=== PATIENT | female | born 1975 | race Two or more races ===

== ENCOUNTER 2019-05-18 12:56 | Emergency (ER) | payer SELFPAY ==
--- NOTE | 2019-05-18 13:15 | Emergency Department Record ---
History of Present Illness - General Chief complaint: ENT Stated complaint: SORE THROAT Time Seen by Provider: 05/18/19 13:06 Source: Patient, Family Mode of Arrival: Ambulatory Limitations: No limitations - History of Present Illness Initial comments: The patient is here due to a 3 day hx of dry cough, ST and now R ear pain. The patient has had a mild NATHAN also but denies any sputum production, SOB, voice changes or fever. She did not get a flu shot this year. MD complaint: Sore throat Onset/Timin -: Days(s) Location: R ear Improves with: None Worsens with: None Associated Symptoms: Cough, Pain with swallowing, Sore throat - Related Data Previous Rx's Medication Instructions Recorded Cetirizine HCl/Pseudoephedrine 1 each PO BID #14 tab.er.12h 05/18/19 [Zyrtec-D Tablet] Fluticasone Propionate [Flonase] 2 spray EACH NARES DAILY #1 bottle 05/18/19 Prednisone [Prednisone 20Mg] 40 mg PO DAILY #8 tab 05/18/19 Allergies Allergy/AdvReac Type Severity Reaction Status Date / Time No Known Drug Allergies Allergy Verified 12/30/18 03:31 Travel Screening - Travel/Exposure Within Last 30 Days Have you traveled within the last 30 days?: Yes Location Detail:: [place] - Travel/Exposure Within Last Year Have you traveled outside the [place] in the last year?: No - Additonal Travel Details Have you been exposed to anyone with a communicable illness?: No - Travel Symptoms Symptom Screening: Headache Review of Systems Constitutional: Reports: Malaise. Denies: Chills, Fever Eyes: Denies: Eye discharge ENT: Reports: Congestion, Ear pain, Throat pain Respiratory: Reports: Cough. Denies: Dyspnea Past Medical History - SOCIAL HISTORY Smoking Status: Never smoker Alcohol Use: None Drug Use: None - RESPIRATORY Hx Respiratory Disorders: No - CARDIOVASCULAR Hx Cardio Disorders: No - NEURO Hx Neuro Disorders: Yes Hx Headaches: Yes (normal) - GI Hx GI Disorders: No - Hx Genitourinary Disorders: No - ENDOCRINE Hx Endocrine Disorders: No - MUSCULOSKELETAL Hx Musculoskeletal Disorders: No - PSYCH Hx Psych Problems: No - HEMATOLOGY/ONCOLOGY Hx Hematology/Oncology Disorders: No Family Medical History Any Significant Family History?: No Physical Exam - General General Appearance: Alert, Oriented x3, Cooperative, No acute distress - Head Head exam: Atraumatic, Normocephalic, Normal inspection - Eye Eye exam: Normal appearance, PERRL, EOMI. negative: Conjunctival injection - ENT ENT exam: Mucous membranes moist, Normal external ear exam, TM's normal bilaterally. negative: Normal orophraynx Throat exam: Tonsillar erythema. negative: Normal inspection, Tonsillomegaly, Tonsillar exudate, R peritonsillar mass, L peritonsillar mass - Neck Neck exam: Normal inspection, Full ROM. negative: Lymphadenopathy, Meningismus, Tenderness - Respiratory Respiratory exam: Normal lung sounds bilaterally. negative: Respiratory distress - Cardiovascular Cardiovascular Exam: Regular rate, Normal rhythm, Normal heart sounds - GI/Abdominal GI/Abdominal exam: Soft, Normal bowel sounds. negative: Tenderness - Extremities Extremities exam: Normal inspection, Full ROM, Normal capillary refill. negative: Tenderness - Neurological Neurological exam: Alert, Normal gait. negative: Abnormal gait, Motor sensory deficit Course Vital Signs 05/18/19 12:59 Temperature 98.6 F Pulse Rate 109 H Respiratory 20 Rate Blood Pressure 136/88 Pulse Ox 97 - Reevaluation(s) Reevaluation #1: I did discuss the neg Flu and Strep with the patient. We will prescribe some meds for the presumed viral URI and have her return for any worsening symptoms. 05/18/19 13:45 Disposition Disposition: Discharge Clinical Impression: URI, acute Disposition: Home, Self-Care Condition: (2) Stable Instructions: Upper Respiratory Infection (ED) Additional Instructions: Please take Tylenol for pain and use the Flonase, Zyrtec-D, and Prednisone. Please see your doctor next week and return to the ER for any worsening symptoms. Prescriptions: Fluticasone Propionate [Flonase] 2 spray EACH NARES DAILY #1 bottle Prednisone [Prednisone 20Mg] 40 mg PO DAILY #8 tab Cetirizine HCl/Pseudoephedrine [Zyrtec-D Tablet] 1 each PO BID #14 tab.er.12h Forms: Patient Portal Access Time of Disposition: 13:48 Quality - Quality Measures Quality Measures: N/A - Blood Pressure Screening View Details: Yes Does Patient Have Any of the Following: No Blood Pressure Classification: Pre-Hypertensive BP Reading Systolic Measurement: 136 Diastolic Measurement: 88 Screening for High Blood Pressure: < Pre-Hypertensive BP, F/U Documented > [G8950] Pre-Hypertensive Follow-up Interventions: Referral to alternative/primary care provider.
[2019-05-18 13:41] LABS: INFLUENZA A NEGATIVE (NEGATIVE); INFLUENZA B NEGATIVE (NEGATIVE)
== END 2019-05-18 13:59 | disposition home or self-care (01) ==
LOC: ER 12:56
DX: J06.9 Acute upper respiratory infection, unspecified (principal)
CPT/HCPCS: 87400; 87880; 99282; 99283